=== PATIENT | male | born 1940 | race Caucasian/White ===

== ENCOUNTER → 2016-07-29 | Outpatient (CLI) | payer MEDICARE, OTHER ==
[~2016-07-29] MED LIST: FEROSUL325 MG PO; FERROUS SU325 MG/TAB PO; FOLIC ACID 40400 MCG PO; HYTRIN10 M1 PO; MULTIPLE VITAMI1 CAP PO; NORVASC 10MG10 MG PO; PRINZIDE 25 MG-1 TAB PO; TOPROL XL 25MG25 MG PO; VITAMIN C500 MG PO; VITAMIN D 400400 IU PO; ZANTAC 150MG T150 MG PO
== END ==
LOC: COL.RAD 10:44
DX: M25.551 Pain in right hip (principal)
CPT/HCPCS: J3301; Q9967